=== PATIENT | male | born 1945 | race Caucasian/White ===

== ENCOUNTER 2016-05-04 14:47 | Outpatient (RCR) | payer MEDICARE, BC ==
[~2016-05-04 14:47] MED LIST: AMIODARONE PO; ASPIRIN ADULT L81 M3 PO; ATIVAN1 M1 PO; ATIVAN1 MG PO; ATORVASTATIN CA10 MG PO; COREG 3.123.125 MG/T PO; IPRATROPIUM BROM3 M1 IH; KEFLEX250 M1 PO; LIORESAL 1010 MG/TAB PO; METOPROLOL SUCC25 M1 PO; NORCO 325 MG-51 TAB PO; PRILOSEC 20MG20 MG PO; SENNA-TIME S 501 TAB PO; SERTRALINE HYDR50 MG PO; ZANTAC PO
== END 2016-08-02 | disposition home or self-care (01) ==
LOC: CARDREHAB 14:47
DX: Z48.812 Encounter for surgical aftercare following surgery on the circulatory system (principal); Z95.1 Presence of aortocoronary bypass graft

== ENCOUNTER 2016-08-31 10:53 | Outpatient (RCR) | payer MEDICARE, BC ==
[2016-02-01 09:30] VITALS: BP 131/74
== END 2016-11-29 | disposition home or self-care (01) ==
LOC: CARDREHAB
DX: Z48.812 Encounter for surgical aftercare following surgery on the circulatory system (principal); Z98.61 Coronary angioplasty status

== ENCOUNTER → 2016-09-03 | Outpatient (CLI) | payer MEDICARE, BC ==
[~2016-09-03] MED LIST changes: +ASPIRIN E.C. 8181 MG PO; +ATIVAN0.5 MG PO; +CLOPIDOGREL PO; +ISOSORBIDE30 MG PO; +LIPITOR 10M10 MG/TAB PO; +RT ALBUTEROL CC18 GM IH; +SYMBICORT1 AE2 IH; +ZANTAC150 M1 PO
== END ==
LOC: LAB 08:47
DX: I70.0 Atherosclerosis of aorta (principal); I70.213 Atherosclerosis of native arteries of extremities with intermittent claudication, bilateral legs

== ENCOUNTER → 2016-09-16 | Outpatient (CLI) | payer MEDICARE, BC | LOC: RAD 09:54 | DX: Z12.5 Encounter for screening for malignant neoplasm of prostate (principal) ==

== ENCOUNTER → 2016-09-24 | Outpatient (CLI) | payer MEDICARE, BC | LOC: RAD 08:50 | DX: Z13.820 Encounter for screening for osteoporosis (principal); M85.852 Other specified disorders of bone density and structure, left thigh ==

== ENCOUNTER → 2016-09-25 | Outpatient (CLI) | payer MEDICARE, BC | LOC: LAB 10:56 | DX: I70.213 Atherosclerosis of native arteries of extremities with intermittent claudication, bilateral legs (principal) ==

== ENCOUNTER → 2016-10-07 | Outpatient (CLI) | payer MEDICARE, BC | LOC: RAD 12:20 | DX: R35.1 Nocturia (principal); Z85.528 Personal history of other malignant neoplasm of kidney ==

== ENCOUNTER → 2016-10-08 | Outpatient (CLI) | payer MEDICARE, BC | LOC: RAD 07:45 | DX: R35.1 Nocturia (principal); Z85.528 Personal history of other malignant neoplasm of kidney ==

== ENCOUNTER 2016-11-16 08:00 | Outpatient (RCR) | payer MEDICARE, BC ==
[2016-02-01 09:30] VITALS: BP 131/74
[~2016-11-16 08:00] MED LIST changes: -ASPIRIN E.C. 8181 MG PO; -ATIVAN0.5 MG PO; -CLOPIDOGREL PO; -ISOSORBIDE30 MG PO; -LIPITOR 10M10 MG/TAB PO; -RT ALBUTEROL CC18 GM IH; -SYMBICORT1 AE2 IH; -ZANTAC150 M1 PO
[2016-12-27] MEDS ORDERED: IPRATROPIUM BROM3 M1 IH (01:45)
[2016-12-27] MEDS ORDERED: RT ALBUTEROL CC18 GM IH (01:45)
[2016-12-27] MEDS ORDERED: LIPITOR 10M10 MG/TAB PO (01:46)
[2016-12-27] MEDS ORDERED: ASPIRIN E.C. 8181 MG PO (01:46)
[2016-12-27] MEDS ORDERED: CLOPIDOGREL PO (01:47)
[2016-12-27] MEDS ORDERED: ISOSORBIDE30 MG PO (01:47)
[2016-12-27] MEDS ORDERED: ATIVAN0.5 MG PO (01:47)
[2016-12-27] MEDS ORDERED: ZANTAC150 M1 PO (01:48)
[2016-12-31] MEDS ORDERED: SYMBICORT1 AE2 IH (15:57)
== END 2017-02-14 | disposition home or self-care (01) ==
LOC: CARDREHAB
DX: Z48.812 Encounter for surgical aftercare following surgery on the circulatory system (principal); Z95.5 Presence of coronary angioplasty implant and graft

== ENCOUNTER → 2016-12-04 | Outpatient (CLI) | payer MEDICARE, BC ==
[2016-02-01 09:30] VITALS: BP 131/74
[~2016-12-04] MED LIST changes: +ASPIRIN E.C. 8181 MG PO; +ATIVAN0.5 MG PO; +CLOPIDOGREL PO; +ISOSORBIDE30 MG PO; +LIPITOR 10M10 MG/TAB PO; +RT ALBUTEROL CC18 GM IH; +SYMBICORT1 AE2 IH; +ZANTAC150 M1 PO
== END ==
LOC: CARDREHAB 08:47
DX: R06.02 Shortness of breath (principal); I10 Essential (primary) hypertension; R07.9 Chest pain, unspecified; Z87.891 Personal history of nicotine dependence; I25.10 Atherosclerotic heart disease of native coronary artery without angina pectoris; Z79.51 Long term (current) use of inhaled steroids
CPT/HCPCS: A9500

== ENCOUNTER 2016-12-26 23:19 | Emergency (ER) | payer MEDICARE, BC ==
[~2016-12-26] VITALS: Ht 175.3 cm; Wt 88.2 kg
[~2016-12-26 23:19] MED LIST changes: -ASPIRIN E.C. 8181 MG PO; -ATIVAN0.5 MG PO; -CLOPIDOGREL PO; -ISOSORBIDE30 MG PO; -LIPITOR 10M10 MG/TAB PO; -RT ALBUTEROL CC18 GM IH; -SYMBICORT1 AE2 IH; -ZANTAC150 M1 PO
[2016-12-27 00:17] VITALS: BP 145/83
[2016-12-27] MEDS ORDERED: IPRATROPIUM BROM3 M1 IH (01:45)
[2016-12-27] MEDS ORDERED: RT ALBUTEROL CC18 GM IH (01:45)
[2016-12-27] MEDS ORDERED: LIPITOR 10M10 MG/TAB PO (01:46)
[2016-12-27] MEDS ORDERED: ASPIRIN E.C. 8181 MG PO (01:46)
[2016-12-27] MEDS ORDERED: CLOPIDOGREL PO (01:47)
[2016-12-27] MEDS ORDERED: ISOSORBIDE30 MG PO (01:47)
[2016-12-27] MEDS ORDERED: ATIVAN0.5 MG PO (01:47)
[2016-12-27] MEDS ORDERED: ZANTAC150 M1 PO (01:48)
== END 2016-12-27 00:17 | disposition home or self-care (01) ==
LOC: ED 23:19
DX: S00.12XA Contusion of left eyelid and periocular area, initial encounter (principal); X58.XXXA Exposure to other specified factors, initial encounter; I25.10 Atherosclerotic heart disease of native coronary artery without angina pectoris; Z95.1 Presence of aortocoronary bypass graft; Z79.02 Long term (current) use of antithrombotics/antiplatelets; Z90.5 Acquired absence of kidney

== ENCOUNTER 2016-12-31 15:47 | Emergency (ER) | payer MEDICARE, BC ==
[~2016-12-31] VITALS: Ht 22.9 cm; Wt 90.0 kg
[~2016-12-31 15:47] MED LIST changes: +ASPIRIN E.C. 8181 MG PO; +ATIVAN0.5 MG PO; +CLOPIDOGREL PO; +ISOSORBIDE30 MG PO; +LIPITOR 10M10 MG/TAB PO; +RT ALBUTEROL CC18 GM IH; +ZANTAC150 M1 PO
[2016-12-31] MEDS ORDERED: SYMBICORT1 AE2 IH (15:57)
[2016-12-31 19:05] VITALS: BP 135/88
== END 2016-12-31 17:55 | disposition home or self-care (01) ==
LOC: ED 15:47
DX: J44.9 Chronic obstructive pulmonary disease, unspecified (principal); R07.9 Chest pain, unspecified; I25.10 Atherosclerotic heart disease of native coronary artery without angina pectoris; Z95.1 Presence of aortocoronary bypass graft; I25.2 Old myocardial infarction; I50.9 Heart failure, unspecified; Z79.02 Long term (current) use of antithrombotics/antiplatelets

== ENCOUNTER → 2017-04-29 | Outpatient (CLI) | payer MEDICARE, BC ==
[~2017-04-29] MED LIST changes: +SYMBICORT1 AE2 IH
== END ==
LOC: LAB 15:09
DX: R53.81 Other malaise (principal)

== ENCOUNTER → 2017-10-20 | Outpatient (CLI) | payer MEDICARE, BC | LOC: LAB 09:21 | DX: I73.9 Peripheral vascular disease, unspecified (principal); I70.0 Atherosclerosis of aorta; I25.10 Atherosclerotic heart disease of native coronary artery without angina pectoris; Z88.1 Allergy status to other antibiotic agents; Z88.0 Allergy status to penicillin ==

== ENCOUNTER → 2017-10-26 | Outpatient (CLI) | payer MEDICARE, BC | LOC: RAD 08:24 | DX: J98.11 Atelectasis (principal); M16.0 Bilateral primary osteoarthritis of hip; Z85.528 Personal history of other malignant neoplasm of kidney; Z87.891 Personal history of nicotine dependence; Z88.1 Allergy status to other antibiotic agents; Z88.0 Allergy status to penicillin ==

== ENCOUNTER 2017-11-17 12:12 | Emergency (ER) | payer MEDICARE, BC ==
[~2017-11-17] VITALS: Ht 175.3 cm; Wt 90.9 kg
[2017-11-17 12:58] LABS: EOS # 0.1 (0.04-0.40); EOS % 1.2 % (0.0-4.0); HEMATOCRIT 41.9 % (42.0-52.0); HEMOGLOBIN 14.1 g/dL (13.5-18.0); LYMPH# 1.5 (1.50-4.00); MEAN CELL VOLUME 96 fl (78-100); MEAN CORPUSCULAR HEMOGLOBIN 32 pg (27-31); MEAN CORPUSCULAR HGB CONC 34 g/dL (33-37); MEAN PLATELET VOLUME 9.7 fl (7.4-10.4); MONO # 0.5 (0.20-0.80); NEU # 5.2 (1.40-6.50); PLATELET COUNT 172 K/mm3 (130-400); RED BLOOD COUNT 4.38 M/mm3 (4.20-5.60); RED CELL DISTRIBUTION WIDTH 13.1 % (11.5-14.5); WHITE BLOOD COUNT 7.3 K/mm3 (4.8-10.8)
[2017-11-17 13:11] LABS: ALBUMIN 4.3 g/dL (3.5-5.0); BUN/CREATININE RATIO 14.4 (6.0-26.0); CALCIUM 9.2 mg/dL (8.4-10.2); POTASSIUM 4.2 mmol/L (3.6-5.0); TOTAL BILIRUBIN 0.6 mg/dL (0.2-1.3); TOTAL PROTEIN 8.1 g/dL (6.3-8.2)
[2017-11-17 13:57] LABS: URINE APPEARANCE CLEAR; URINE BILIRUBIN NEGATIVE (NEGATIVE); URINE BLOOD NEGATIVE (NEGATIVE); URINE COLOR YELLOW; URINE GLUCOSE NEGATIVE (NEGATIVE); URINE KETONE NEGATIVE (NEGATIVE); URINE LEUKOCYTE ESTERASE NEGATIVE (NEGATIVE); URINE NITRATE NEGATIVE (NEGATIVE); URINE PROTEIN(semi-quant) 1+ mg/dL (NEGATIVE); URINE UROBILINOGEN NORMAL (NORMAL); URINE WBC 0-1 /hpf (0-3)
[2017-11-17] MEDS ORDERED: VALIUM 5MG T5 MG/TAB PO (14:25)
[2017-11-17 14:32] VITALS: BP 122/69
== END 2017-11-17 14:30 | disposition home or self-care (01) ==
LOC: ED 12:12
PROVIDERS: Physician Assistant
DX: H83.03 Labyrinthitis, bilateral (principal); J44.9 Chronic obstructive pulmonary disease, unspecified; Z85.528 Personal history of other malignant neoplasm of kidney; Z87.891 Personal history of nicotine dependence; F41.9 Anxiety disorder, unspecified; Z79.82 Long term (current) use of aspirin

== ENCOUNTER 2017-12-14 09:00 | Outpatient (RCR) | payer MEDICARE, BC ==
[~2017-12-14 09:00] MED LIST changes: -ATIVAN0.5 MG PO; +VALIUM 5MG T5 MG/TAB PO
[2017-12-16] MEDS ORDERED: ANORO ELLIPTA1 POW IH (14:31)
[2017-12-16] MEDS ORDERED: LOPRESSOR 225 MG/TAB PO (17:18)
== END 2018-01-23 | disposition home or self-care (01) ==
LOC: PT
DX: M16.11 Unilateral primary osteoarthritis, right hip (principal); M25.552 Pain in left hip; M48.00 Spinal stenosis, site unspecified
CPT/HCPCS: G8978-GP; G8979-GP

== ENCOUNTER 2017-12-16 14:19 | Emergency (ER) | payer MEDICARE, BC ==
[~2017-12-16] VITALS: Ht 175.3 cm; Wt 95.4 kg
[2017-12-16] MEDS ORDERED: ANORO ELLIPTA1 POW IH (14:31)
[2017-12-16 15:29] LABS: EOS # 0.1 (0.04-0.40); EOS % 0.9 % (0.0-4.0); HEMATOCRIT 40.4 % (42.0-52.0); HEMOGLOBIN 13.7 g/dL (13.5-18.0); LYMPH# 1.3 (1.50-4.00); MEAN CELL VOLUME 96 fl (78-100); MEAN CORPUSCULAR HEMOGLOBIN 33 pg (27-31); MEAN CORPUSCULAR HGB CONC 34 g/dL (33-37); MEAN PLATELET VOLUME 9.9 fl (7.4-10.4); MONO # 0.6 (0.20-0.80); NEU # 4.4 (1.40-6.50); PLATELET COUNT 169 K/mm3 (130-400); RED BLOOD COUNT 4.22 M/mm3 (4.20-5.60); RED CELL DISTRIBUTION WIDTH 13.2 % (11.5-14.5); WHITE BLOOD COUNT 6.4 K/mm3 (4.8-10.8)
[2017-12-16 15:48] LABS: ALBUMIN 4.2 g/dL (3.5-5.0); BUN/CREATININE RATIO 16.3 (6.0-26.0); CALCIUM 8.8 mg/dL (8.4-10.2); POTASSIUM 4.1 mmol/L (3.6-5.0); TOTAL BILIRUBIN 0.5 mg/dL (0.2-1.3); TOTAL PROTEIN 7.9 g/dL (6.3-8.2)
[2017-12-16 15:50] LABS: PARTIAL THROMBOPLASTIN TIME 24.5 SECONDS (21.0-32.0); PROTHROMBIN TIME 9.9 SECONDS (9.0-12.0)
[2017-12-16 15:58] LABS: CKMB ISOENZYME 7.4 ng/mL (0.6-3.5); TROPONIN-I < 0.03 ng/mL (0.00-0.06)
[2017-12-16 15:59] LABS: D-DIMER 0.71 mg/L FEU (0.15-0.50)
[2017-12-16] MEDS ORDERED: LOPRESSOR 225 MG/TAB PO (17:18)
[2017-12-16 18:02] VITALS: BP 119/86
== END 2017-12-16 18:09 | disposition home or self-care (01) ==
LOC: ED 14:19
PROVIDERS: Physician Assistant
DX: I47.1 Supraventricular tachycardia (principal); I25.10 Atherosclerotic heart disease of native coronary artery without angina pectoris; F41.9 Anxiety disorder, unspecified; Z95.1 Presence of aortocoronary bypass graft; J44.9 Chronic obstructive pulmonary disease, unspecified; I73.9 Peripheral vascular disease, unspecified; Z87.891 Personal history of nicotine dependence; Z79.82 Long term (current) use of aspirin
CPT/HCPCS: J1885; J7030

== ENCOUNTER → 2017-12-24 | Outpatient (CLI) | payer MEDICARE, BC ==
[~2017-12-24] VITALS: Ht 175.3 cm; Wt 95.4 kg
[~2017-12-24] MED LIST changes: +ANORO ELLIPTA1 POW IH; +LOPRESSOR 225 MG/TAB PO
[2017-12-24 09:36] VITALS: BP 122/70
== END ==
LOC: AMSURD 09:26
DX: I49.5 Sick sinus syndrome (principal); J44.9 Chronic obstructive pulmonary disease, unspecified

== ENCOUNTER → 2017-12-30 | Outpatient (CLI) | payer MEDICARE, BC ==
[2017-12-24 09:36] VITALS: BP 122/70
== END ==
LOC: RAD 15:44
DX: I35.1 Nonrheumatic aortic (valve) insufficiency (principal)

== ENCOUNTER 2018-01-31 13:47 | Emergency (ER) | payer MEDICARE, BC ==
[~2018-01-31] VITALS: Ht 175.3 cm; Wt 90.9 kg
[2018-01-31 14:23] LABS: EOS # 0.1 (0.04-0.40); EOS % 1.8 % (0.0-4.0); HEMATOCRIT 42.7 % (42.0-52.0); HEMOGLOBIN 14.5 g/dL (13.5-18.0); LYMPH# 1.3 (1.50-4.00); MEAN CELL VOLUME 95 fl (78-100); MEAN CORPUSCULAR HEMOGLOBIN 32 pg (27-31); MEAN CORPUSCULAR HGB CONC 34 g/dL (33-37); MONO # 0.6 (0.20-0.80); NEU # 4.2 (1.40-6.50); PLATELET COUNT 172 K/mm3 (130-400); RED BLOOD COUNT 4.48 M/mm3 (4.20-5.60); WHITE BLOOD COUNT 6.2 K/mm3 (4.8-10.8)
[2018-01-31 14:39] LABS: ALBUMIN 4.3 g/dL (3.5-5.0); BUN/CREATININE RATIO 18.1 (6.0-26.0); CALCIUM 9.2 mg/dL (8.4-10.2); POTASSIUM 4.2 mmol/L (3.6-5.0); TOTAL BILIRUBIN 0.6 mg/dL (0.2-1.3); TOTAL PROTEIN 7.9 g/dL (6.3-8.2)
[2018-01-31 14:55] LABS: CKMB ISOENZYME 4.5 ng/mL (0.6-3.5); TROPONIN-I < 0.03 ng/mL (0.00-0.06)
[2018-01-31 16:35] LABS: CKMB ISOENZYME 3.7 ng/mL (0.6-3.5); TROPONIN-I < 0.03 ng/mL (0.00-0.06)
[2018-01-31 16:59] VITALS: BP 132/73
== END 2018-01-31 16:54 | disposition home or self-care (01) ==
LOC: ED 13:47
PROVIDERS: Nurse Practitioner Primary Care
DX: I49.5 Sick sinus syndrome (principal); R00.1 Bradycardia, unspecified; I48.91 Unspecified atrial fibrillation; I25.10 Atherosclerotic heart disease of native coronary artery without angina pectoris; I10 Essential (primary) hypertension; J44.9 Chronic obstructive pulmonary disease, unspecified; E78.5 Hyperlipidemia, unspecified; Z79.82 Long term (current) use of aspirin; Z79.899 Other long term (current) drug therapy; Z95.1 Presence of aortocoronary bypass graft
CPT/HCPCS: J2405; J7030

== ENCOUNTER → 2018-02-03 | Outpatient (CLI) | payer MEDICARE, BC ==
[2018-01-31 16:59] VITALS: BP 132/73
[2018-02-04 14:16] LABS: HEMOGLOBIN 13.6 g/dL (13.5-18.0); RED BLOOD COUNT 4.16 M/mm3 (4.20-5.60); RED CELL DISTRIBUTION WIDTH 13.1 % (11.5-14.5)
[2018-02-04 14:25] LABS: BUN/CREATININE RATIO 14.2 (6.0-26.0); CALCIUM 8.9 mg/dL (8.4-10.2); POTASSIUM 4.4 mmol/L (3.6-5.0)
== END ==
LOC: LAB 13:48
PROVIDERS: Family Medicine
DX: I49.5 Sick sinus syndrome (principal); I70.213 Atherosclerosis of native arteries of extremities with intermittent claudication, bilateral legs; I25.810 Atherosclerosis of coronary artery bypass graft(s) without angina pectoris

== ENCOUNTER 2018-02-15 21:28 | Emergency (ER) | payer MEDICARE, BC ==
[2018-02-15] MEDS ORDERED: ELIQUIS5 MG PO (21:53)
[2018-02-15 22:02] LABS: EOS # 0.1 (0.04-0.40); EOS % 1.2 % (0.0-4.0); HEMATOCRIT 39.5 % (42.0-52.0); HEMOGLOBIN 13.6 g/dL (13.5-18.0); LYMPH# 1.3 (1.50-4.00); MEAN CELL VOLUME 96 fl (78-100); MEAN CORPUSCULAR HEMOGLOBIN 33 pg (27-31); MEAN CORPUSCULAR HGB CONC 34 g/dL (33-37); MEAN PLATELET VOLUME 9.7 fl (7.4-10.4); MONO # 0.7 (0.20-0.80); NEU # 5.6 (1.40-6.50); PLATELET COUNT 175 K/mm3 (130-400); RED BLOOD COUNT 4.13 M/mm3 (4.20-5.60); RED CELL DISTRIBUTION WIDTH 12.8 % (11.5-14.5); WHITE BLOOD COUNT 7.7 K/mm3 (4.8-10.8)
[2018-02-15 22:14] LABS: URINE WBC 0 /hpf (0-3)
[2018-02-15 22:16] LABS: ALBUMIN 4.4 g/dL (3.5-5.0); BUN/CREATININE RATIO 17.3 (6.0-26.0); CALCIUM 9.5 mg/dL (8.4-10.2); POTASSIUM 4.4 mmol/L (3.6-5.0); TOTAL BILIRUBIN 0.4 mg/dL (0.2-1.3); TOTAL PROTEIN 7.9 g/dL (6.3-8.2)
[2018-02-15 22:21] LABS: PH-URINE 5.5 (5.0 - 8.0); URINE APPEARANCE CLEAR; URINE BILIRUBIN NEGATIVE (NEGATIVE); URINE BLOOD NEGATIVE (NEGATIVE); URINE COLOR YELLOW; URINE GLUCOSE NEGATIVE (NEGATIVE); URINE KETONE NEGATIVE (NEGATIVE); URINE LEUKOCYTE ESTERASE NEGATIVE (NEGATIVE); URINE NITRATE NEGATIVE (NEGATIVE); URINE PROTEIN(semi-quant) TRACE mg/dL (NEGATIVE); URINE UROBILINOGEN NORMAL (NORMAL)
[2018-02-15 22:50] VITALS: BP 138/90
== END 2018-02-15 22:50 | disposition home or self-care (01) ==
LOC: ED 21:28
PROVIDERS: Physician Assistant
DX: I48.0 Paroxysmal atrial fibrillation (principal); Z95.0 Presence of cardiac pacemaker; Z79.01 Long term (current) use of anticoagulants; J44.9 Chronic obstructive pulmonary disease, unspecified; I25.10 Atherosclerotic heart disease of native coronary artery without angina pectoris; Z90.5 Acquired absence of kidney; F41.9 Anxiety disorder, unspecified

== ENCOUNTER 2018-02-27 18:04 | Emergency (ER) | payer MEDICARE, BC ==
[~2018-02-27] VITALS: Wt 91.0 kg
[~2018-02-27 18:04] MED LIST changes: +ELIQUIS5 MG PO
[2018-02-27] MEDS ORDERED: AMIODARONE HCL400 MG PO (19:20)
[2018-02-27] MEDS ORDERED: LOPRESSOR 225 MG/TAB PO (19:21)
[2018-02-27] MEDS ORDERED: ANORO ELLIPTA1 POW IH (19:22)
[2018-02-27 19:27] LABS: HEMATOCRIT 40.1 % (42.0-52.0); HEMOGLOBIN 13.6 g/dL (13.5-18.0); MEAN CELL VOLUME 96 fl (78-100); MEAN CORPUSCULAR HEMOGLOBIN 33 pg (27-31); MEAN CORPUSCULAR HGB CONC 34 g/dL (33-37); MEAN PLATELET VOLUME 10.1 fl (7.4-10.4); PLATELET COUNT 172 K/mm3 (130-400); RED BLOOD COUNT 4.16 M/mm3 (4.20-5.60); RED CELL DISTRIBUTION WIDTH 12.9 % (11.5-14.5); WHITE BLOOD COUNT 9.7 K/mm3 (4.8-10.8)
[2018-02-27 19:28] LABS: ALBUMIN 4.2 g/dL (3.5-5.0); BUN/CREATININE RATIO 14.5 (6.0-26.0); CALCIUM 9.1 mg/dL (8.4-10.2); POTASSIUM 4.4 mmol/L (3.6-5.0); TOTAL BILIRUBIN 0.6 mg/dL (0.2-1.3); TOTAL PROTEIN 7.2 g/dL (6.3-8.2)
[2018-02-27 19:42] LABS: BAND 1 % (0-10); LYMPHOCYTE 11 % (20-51); MONOCYTE 7 % (3-10); NEUTROPHILS 79 % (42-75); TROPONIN-I < 0.03 ng/mL (0.00-0.06)
[2018-02-27 19:50] LABS: D-DIMER 1.52 mg/L FEU (0.15-0.50)
[2018-02-27 20:20] VITALS: BP 147/75
== END 2018-02-27 20:20 | disposition home or self-care (01) ==
LOC: ED 18:04
PROVIDERS: Family Medicine
DX: R53.81 Other malaise (principal); R23.2 Flushing; F41.9 Anxiety disorder, unspecified; I48.91 Unspecified atrial fibrillation; Z79.82 Long term (current) use of aspirin; I25.10 Atherosclerotic heart disease of native coronary artery without angina pectoris; J44.9 Chronic obstructive pulmonary disease, unspecified; E78.5 Hyperlipidemia, unspecified; Z85.528 Personal history of other malignant neoplasm of kidney; Z95.1 Presence of aortocoronary bypass graft; Z95.0 Presence of cardiac pacemaker; Z90.5 Acquired absence of kidney; Z79.899 Other long term (current) drug therapy; Z87.891 Personal history of nicotine dependence; Z79.01 Long term (current) use of anticoagulants

== ENCOUNTER 2018-03-14 10:08 | Emergency (ER) | payer MEDICARE, BC ==
[~2018-03-14] VITALS: Ht 175.3 cm; Wt 90.0 kg
[~2018-03-14 10:08] MED LIST changes: +AMIODARONE HCL400 MG PO
[2018-03-14 10:54] LABS: EOS # 0.1 (0.04-0.40); EOS % 1.1 % (0.0-4.0); HEMATOCRIT 41.3 % (42.0-52.0); HEMOGLOBIN 13.7 g/dL (13.5-18.0); LYMPH# 1.2 (1.50-4.00); MEAN CELL VOLUME 96 fl (78-100); MEAN CORPUSCULAR HEMOGLOBIN 32 pg (27-31); MEAN CORPUSCULAR HGB CONC 33 g/dL (33-37); MEAN PLATELET VOLUME 9.3 fl (7.4-10.4); MONO # 0.7 (0.20-0.80); NEU # 5.8 (1.40-6.50); PLATELET COUNT 200 K/mm3 (130-400); RED BLOOD COUNT 4.29 M/mm3 (4.20-5.60); RED CELL DISTRIBUTION WIDTH 12.9 % (11.5-14.5); WHITE BLOOD COUNT 7.9 K/mm3 (4.8-10.8)
[2018-03-14 11:08] LABS: ALBUMIN 4.4 g/dL (3.5-5.0); CALCIUM 9.5 mg/dL (8.4-10.2); POTASSIUM 5.1 mmol/L (3.6-5.0); TOTAL BILIRUBIN 0.9 mg/dL (0.2-1.3); TOTAL PROTEIN 7.5 g/dL (6.3-8.2)
[2018-03-14 11:16] LABS: URINE APPEARANCE CLEAR; URINE BILIRUBIN NEGATIVE (NEGATIVE); URINE BLOOD NEGATIVE (NEGATIVE); URINE COLOR YELLOW; URINE GLUCOSE NEGATIVE (NEGATIVE); URINE KETONE NEGATIVE (NEGATIVE); URINE LEUKOCYTE ESTERASE NEGATIVE (NEGATIVE); URINE MUCUS PRESENT (NOT PRESENT); URINE NITRATE NEGATIVE (NEGATIVE); URINE PROTEIN(semi-quant) 1+ mg/dL (NEGATIVE); URINE UROBILINOGEN NORMAL (NORMAL); URINE WBC 0-1 /hpf (0-3)
[2018-03-14] MEDS ORDERED: ZOFRAN ODT4 MG PO (12:42)
[2018-03-14 13:09] VITALS: BP 117/76
== END 2018-03-14 12:58 | disposition home or self-care (01) ==
LOC: ED 10:08
PROVIDERS: Physician Assistant
DX: R10.32 Left lower quadrant pain (principal); R10.31 Right lower quadrant pain; K59.00 Constipation, unspecified; R11.0 Nausea; Z79.899 Other long term (current) drug therapy; Z79.82 Long term (current) use of aspirin; Z79.01 Long term (current) use of anticoagulants; I25.10 Atherosclerotic heart disease of native coronary artery without angina pectoris; I10 Essential (primary) hypertension; Z95.5 Presence of coronary angioplasty implant and graft; Z87.891 Personal history of nicotine dependence; K21.9 Gastro-esophageal reflux disease without esophagitis; Z85.528 Personal history of other malignant neoplasm of kidney
CPT/HCPCS: J7030; Q9967

== ENCOUNTER → 2018-04-18 | Outpatient (CLI) | payer MEDICARE, BC ==
[~2018-04-18] MED LIST changes: +ZOFRAN ODT4 MG PO
[2018-04-18 09:02] LABS: ALBUMIN 4.3 g/dL (3.5-5.0); CALCIUM 9.5 mg/dL (8.4-10.2); POTASSIUM 4.5 mmol/L (3.6-5.0); TOTAL BILIRUBIN 0.6 mg/dL (0.2-1.3); TOTAL PROTEIN 7.5 g/dL (6.3-8.2)
== END ==
LOC: LAB 08:04
PROVIDERS: Family Medicine
DX: I70.0 Atherosclerosis of aorta (principal); I25.10 Atherosclerotic heart disease of native coronary artery without angina pectoris; I73.9 Peripheral vascular disease, unspecified

== ENCOUNTER → 2018-04-21 | Outpatient (CLI) | payer MEDICARE, BC | LOC: RAD 10:08 | DX: K59.00 Constipation, unspecified (principal) ==

== ENCOUNTER → 2018-10-24 | Outpatient (CLI) | payer MEDICARE, BC ==
[2018-10-24 08:31] LABS: ALBUMIN 4.5 g/dL (3.5-5.0); CALCIUM 10.2 mg/dL (8.4-10.2); POTASSIUM 4.5 mmol/L (3.6-5.0); TOTAL BILIRUBIN 0.6 mg/dL (0.2-1.3); TOTAL PROTEIN 7.9 g/dL (6.3-8.2)
== END ==
LOC: LAB 07:34
PROVIDERS: Urology
DX: R35.1 Nocturia (principal); I25.10 Atherosclerotic heart disease of native coronary artery without angina pectoris; I73.9 Peripheral vascular disease, unspecified

== ENCOUNTER → 2018-11-03 | Outpatient (CLI) | payer MEDICARE, BC | LOC: RAD 14:17 | DX: Z00.00 Encounter for general adult medical examination without abnormal findings (principal); M16.11 Unilateral primary osteoarthritis, right hip; M87.9 Osteonecrosis, unspecified; M48.07 Spinal stenosis, lumbosacral region; M85.80 Other specified disorders of bone density and structure, unspecified site; F41.8 Other specified anxiety disorders; I70.0 Atherosclerosis of aorta; K21.9 Gastro-esophageal reflux disease without esophagitis; I73.9 Peripheral vascular disease, unspecified; I25.10 Atherosclerotic heart disease of native coronary artery without angina pectoris; J44.9 Chronic obstructive pulmonary disease, unspecified; Z95.828 Presence of other vascular implants and grafts ==

== ENCOUNTER → 2018-11-08 | Outpatient (CLI) | payer MEDICARE, BC | LOC: RAD 11-07 07:49 | DX: M89.9 Disorder of bone, unspecified (principal); I70.90 Unspecified atherosclerosis; Z95.0 Presence of cardiac pacemaker; Z90.5 Acquired absence of kidney; Z98.890 Other specified postprocedural states; Z85.528 Personal history of other malignant neoplasm of kidney ==

== ENCOUNTER → 2018-11-15 | Outpatient (CLI) | payer MEDICARE, BC | LOC: RAD 08:21 → MAMMO 08:30 | DX: Z00.00 Encounter for general adult medical examination without abnormal findings (principal); Z13.820 Encounter for screening for osteoporosis; M16.11 Unilateral primary osteoarthritis, right hip; M48.07 Spinal stenosis, lumbosacral region; M85.80 Other specified disorders of bone density and structure, unspecified site; J44.9 Chronic obstructive pulmonary disease, unspecified; F41.8 Other specified anxiety disorders; I25.10 Atherosclerotic heart disease of native coronary artery without angina pectoris; K21.9 Gastro-esophageal reflux disease without esophagitis; I73.9 Peripheral vascular disease, unspecified; I35.8 Other nonrheumatic aortic valve disorders ==

== ENCOUNTER 2018-12-22 15:23 | Emergency (ER) | payer MEDICARE, BC ==
[~2018-12-22] VITALS: Wt 93.2 kg
[2018-12-22] MEDS ORDERED: COLACE100 M1 PO (15:33)
[2018-12-22] MEDS ORDERED: TOPROL XL100 MG PO (15:34)
[2018-12-22] MEDS ORDERED: ASPIR LOW81 MG PO (15:35)
[2018-12-22 16:09] LABS: EOS # 0.1 (0.04-0.40); HEMATOCRIT 40.8 % (42.0-52.0); HEMOGLOBIN 13.7 g/dL (13.5-18.0); LYMPH# 1.1 (1.50-4.00); MEAN CELL VOLUME 97 fl (78-100); MEAN CORPUSCULAR HEMOGLOBIN 32 pg (27-31); MEAN CORPUSCULAR HGB CONC 34 g/dL (33-37); MEAN PLATELET VOLUME 9.7 fl (7.4-10.4); MONO # 0.5 (0.20-0.80); NEU # 4.2 (1.40-6.50); PLATELET COUNT 156 K/mm3 (130-400); RED BLOOD COUNT 4.23 M/mm3 (4.20-5.60); RED CELL DISTRIBUTION WIDTH 13.1 % (11.5-14.5)
[2018-12-22 16:27] LABS: CALCIUM 9.5 mg/dL (8.3-10.5); POTASSIUM 4.2 mmol/L (3.5-5.1); TOTAL BILIRUBIN 0.6 mg/dL (0.2-1.2); TOTAL PROTEIN 7.2 g/dL (6.2-8.1)
[2018-12-22 16:57] LABS: D-DIMER 0.83 mg/L FEU (0.15-0.50)
[2018-12-22 18:46] VITALS: BP 123/81
== END 2018-12-22 18:40 | disposition home or self-care (01) ==
LOC: ED 15:23
PROVIDERS: Nurse Practitioner Family
DX: R42 Dizziness and giddiness (principal); T44.7X5A Adverse effect of beta-adrenoreceptor antagonists, initial encounter; I25.10 Atherosclerotic heart disease of native coronary artery without angina pectoris; I48.91 Unspecified atrial fibrillation; I25.2 Old myocardial infarction; J44.9 Chronic obstructive pulmonary disease, unspecified; Z95.0 Presence of cardiac pacemaker; Z90.5 Acquired absence of kidney; Z90.49 Acquired absence of other specified parts of digestive tract; Z79.82 Long term (current) use of aspirin; Z87.891 Personal history of nicotine dependence; Z85.528 Personal history of other malignant neoplasm of kidney
CPT/HCPCS: J7030; Q9967

== ENCOUNTER → 2019-01-13 | Outpatient (CLI) | payer MEDICARE, BC ==
[2018-12-22 18:46] VITALS: BP 123/81
[~2019-01-13] MED LIST changes: +ASPIR LOW81 MG PO; +COLACE100 M1 PO; +TOPROL XL100 MG PO
[2019-01-13 08:44] LABS: POTASSIUM 4.5 mmol/L (3.5-5.1)
[2019-01-13 08:45] LABS: CALCIUM 9.5 mg/dL (8.3-10.5)
== END ==
LOC: LAB 08:20
PROVIDERS: Family Medicine
DX: N18.4 Chronic kidney disease, stage 4 (severe) (principal); R79.89 Other specified abnormal findings of blood chemistry; R35.1 Nocturia

== ENCOUNTER → 2019-01-16 | Outpatient (CLI) | payer MEDICARE, BC ==
[2018-12-22 18:46] VITALS: BP 123/81
== END ==
LOC: RAD 09:29
DX: N18.4 Chronic kidney disease, stage 4 (severe) (principal); N28.89 Other specified disorders of kidney and ureter; N39.43 Post-void dribbling; Z90.5 Acquired absence of kidney

== ENCOUNTER 2019-02-09 09:15 | Emergency (ER) | payer MEDICARE, BC ==
[2019-02-09] MEDS ORDERED: METOPROLOL SUCC25 M1 PO (10:17)
[2019-02-09 10:34] LABS: URINE APPEARANCE HAZY; URINE COLOR YELLOW
[2019-02-09 10:35] LABS: URINE BILIRUBIN NEGATIVE (NEGATIVE); URINE BLOOD 50 ery/uL (NEGATIVE); URINE GLUCOSE NEGATIVE (NEGATIVE); URINE KETONE NEGATIVE (NEGATIVE); URINE LEUKOCYTE ESTERASE 1+ (NEGATIVE); URINE NITRATE POSITIVE (NEGATIVE); URINE PROTEIN(semi-quant) 1+ mg/dL (NEGATIVE); URINE UROBILINOGEN NORMAL (NORMAL); URINE WBC >50 /hpf (0-3)
[2019-02-09 10:41] LABS: HEMATOCRIT 39.4 % (42.0-52.0); HEMOGLOBIN 13.4 g/dL (13.5-18.0); MEAN CELL VOLUME 96 fl (78-100); MEAN CORPUSCULAR HEMOGLOBIN 33 pg (27-31); MEAN CORPUSCULAR HGB CONC 34 g/dL (33-37); PLATELET COUNT 162 K/mm3 (130-400); RED BLOOD COUNT 4.09 M/mm3 (4.20-5.60); RED CELL DISTRIBUTION WIDTH 13.1 % (11.5-14.5); WHITE BLOOD COUNT 12.5 K/mm3 (4.8-10.8)
[2019-02-09 10:53] LABS: ALBUMIN 4.1 g/dL (3.4-4.8); POTASSIUM 4.7 mmol/L (3.5-5.1)
[2019-02-09 10:54] LABS: CALCIUM 9.5 mg/dL (8.3-10.5)
[2019-02-09 10:55] LABS: TOTAL PROTEIN 7.6 g/dL (6.2-8.1)
[2019-02-09 10:56] LABS: BAND 1 % (0-10); LYMPHOCYTE 11 % (20-51); MONOCYTE 4 % (3-10); NEUTROPHILS 84 % (42-75)
[2019-02-09 10:57] LABS: TOTAL BILIRUBIN 1.3 mg/dL (0.2-1.2)
[2019-02-09] MEDS ORDERED: ACID REDUCER 1150 MG PO (11:17)
[2019-02-09] MEDS ORDERED: DILTIAZEM HCL PO (11:18)
[2019-02-09] MEDS ORDERED: CIPRO250 M1 PO (13:08)
[2019-02-09 13:29] VITALS: BP 122/66
== END 2019-02-09 13:24 | disposition home or self-care (01) ==
LOC: ED 09:15
PROVIDERS: Nurse Practitioner Primary Care
DX: N30.00 Acute cystitis without hematuria (principal); I10 Essential (primary) hypertension; Z90.49 Acquired absence of other specified parts of digestive tract; Z95.1 Presence of aortocoronary bypass graft; Z95.0 Presence of cardiac pacemaker; Z87.442 Personal history of urinary calculi; Z98.52 Vasectomy status; Z79.82 Long term (current) use of aspirin; Z88.0 Allergy status to penicillin; Z88.1 Allergy status to other antibiotic agents
CPT/HCPCS: A4216; J0696

== ENCOUNTER → 2019-04-17 | Outpatient (CLI) | payer MEDICARE, BC ==
[~2019-04-17] MED LIST changes: +ACID REDUCER 1150 MG PO; +CIPRO250 M1 PO; +DILTIAZEM HCL PO
[2019-04-17 09:39] LABS: HEMATOCRIT 41.4 % (42.0-52.0); HEMOGLOBIN 13.9 g/dL (13.5-18.0); MEAN PLATELET VOLUME 9.8 fl (7.4-10.4); RED BLOOD COUNT 4.37 M/mm3 (4.20-5.60); WHITE BLOOD COUNT 4.8 K/mm3 (4.8-10.8)
[2019-04-17 10:09] LABS: ALBUMIN 4.1 g/dL (3.4-4.8); CALCIUM 9.8 mg/dL (8.3-10.5); POTASSIUM 4.6 mmol/L (3.5-5.1)
== END ==
LOC: LAB 09:12
PROVIDERS: Internal Medicine Nephrology
DX: I12.9 Hypertensive chronic kidney disease with stage 1 through stage 4 chronic kidney disease, or unspecified chronic kidney disease (principal); N18.3 Chronic kidney disease, stage 3 (moderate); D63.1 Anemia in chronic kidney disease; M85.80 Other specified disorders of bone density and structure, unspecified site

== ENCOUNTER → 2019-08-25 | Outpatient (CLI) | payer MEDICARE, BC ==
[2019-08-25 08:40] LABS: POTASSIUM 4.4 mmol/L (3.5-5.1)
[2019-08-25 08:42] LABS: CALCIUM 8.5 mg/dL (8.3-10.5)
== END ==
LOC: LAB 08:22
PROVIDERS: Internal Medicine Nephrology
DX: I12.9 Hypertensive chronic kidney disease with stage 1 through stage 4 chronic kidney disease, or unspecified chronic kidney disease (principal); N18.3 Chronic kidney disease, stage 3 (moderate); I73.9 Peripheral vascular disease, unspecified

== ENCOUNTER 2019-09-06 04:17 | Emergency (ER) | payer MEDICARE, BC ==
[~2019-09-06] VITALS: Ht 175.3 cm; Wt 90.0 kg
[2019-09-06] MEDS ORDERED: PEPCID40 M1 PO (04:35)
[2019-09-06] MEDS ORDERED: ALBUTEROL1.25 MG/3 IH (04:36)
[2019-09-06] MEDS ORDERED: OXY (04:37)
[2019-09-06 07:00] LABS: URINE APPEARANCE HAZY; URINE COLOR YELLOW
[2019-09-06 07:01] LABS: PH-URINE 5.5 (5.0 - 8.0); URINE BILIRUBIN NEGATIVE (NEGATIVE); URINE BLOOD TRACE (NEGATIVE); URINE GLUCOSE NEGATIVE (NEGATIVE); URINE KETONE NEGATIVE (NEGATIVE); URINE LEUKOCYTE ESTERASE TRACE (NEGATIVE); URINE NITRATE NEGATIVE (NEGATIVE); URINE PROTEIN(semi-quant) 2+ mg/dL (NEGATIVE); URINE UROBILINOGEN NORMAL (NORMAL)
[2019-09-06 07:02] LABS: URINE MUCUS PRESENT (NOT PRESENT)
[2019-09-06] MEDS ORDERED: CYCLOBENZ5 MG PO (07:58)
[2019-09-06 08:23] VITALS: BP 142/96
== END 2019-09-06 08:20 | disposition home or self-care (01) ==
LOC: ED 04:17
PROVIDERS: Nurse Practitioner Family
DX: M62.830 Muscle spasm of back (principal); M54.5 Low back pain; G89.29 Other chronic pain; I25.10 Atherosclerotic heart disease of native coronary artery without angina pectoris; J44.9 Chronic obstructive pulmonary disease, unspecified; F32.9 Major depressive disorder, single episode, unspecified; N18.9 Chronic kidney disease, unspecified; M16.10 Unilateral primary osteoarthritis, unspecified hip; Z79.82 Long term (current) use of aspirin; Z85.53 Personal history of malignant neoplasm of renal pelvis; Z87.891 Personal history of nicotine dependence; Z90.5 Acquired absence of kidney; Z95.0 Presence of cardiac pacemaker; Z95.5 Presence of coronary angioplasty implant and graft
CPT/HCPCS: J1885; J7030

== ENCOUNTER → 2019-09-25 | Outpatient (CLI) | payer MEDICARE, BC ==
[2019-09-06 08:23] VITALS: BP 142/96
[~2019-09-25] MED LIST changes: +ALBUTEROL1.25 MG/3 IH; +CYCLOBENZ5 MG PO; +OXY; +PEPCID40 M1 PO
[2019-09-25 08:06] LABS: BASO # 0.1 (0.02-0.10); EOS # 0.1 (0.04-0.40); EOS % 2.1 % (0.0-4.0); HEMATOCRIT 41.2 % (42.0-52.0); HEMOGLOBIN 13.6 g/dL (13.5-18.0); LYMPH# 1.3 (1.50-4.00); MEAN CELL VOLUME 97 fl (78-100); MEAN CORPUSCULAR HEMOGLOBIN 32 pg (27-31); MEAN CORPUSCULAR HGB CONC 33 g/dL (33-37); MEAN PLATELET VOLUME 9.3 fl (7.4-10.4); MONO # 0.5 (0.20-0.80); NEU # 2.3 (1.40-6.50); PLATELET COUNT 206 K/mm3 (130-400); RED BLOOD COUNT 4.24 M/mm3 (4.20-5.60); RED CELL DISTRIBUTION WIDTH 12.8 % (11.5-14.5); WHITE BLOOD COUNT 4.3 K/mm3 (4.8-10.8)
[2019-09-25 08:17] LABS: ALBUMIN 4.3 g/dL (3.4-4.8)
[2019-09-25 08:18] LABS: POTASSIUM 4.4 mmol/L (3.5-5.1)
[2019-09-25 08:19] LABS: CALCIUM 9.1 mg/dL (8.3-10.5); PROTHROMBIN TIME 9.8 SECONDS (9.0-12.0)
[2019-09-25 08:20] LABS: TOTAL PROTEIN 7.4 g/dL (6.2-8.1)
[2019-09-25 08:22] LABS: TOTAL BILIRUBIN 0.5 mg/dL (0.2-1.2)
[2019-09-25 08:48] LABS: URINE APPEARANCE CLEAR; URINE BILIRUBIN NEGATIVE (NEGATIVE); URINE BLOOD NEGATIVE (NEGATIVE); URINE COLOR YELLOW; URINE GLUCOSE NEGATIVE (NEGATIVE); URINE KETONE NEGATIVE (NEGATIVE); URINE LEUKOCYTE ESTERASE NEGATIVE (NEGATIVE); URINE NITRATE NEGATIVE (NEGATIVE); URINE PROTEIN(semi-quant) 1+ mg/dL (NEGATIVE); URINE UROBILINOGEN NORMAL (NORMAL); URINE WBC 0-1 /hpf (0-3)
== END ==
LOC: LAB 07:46
PROVIDERS: Family Medicine
DX: Z01.818 Encounter for other preprocedural examination (principal); Z72.0 Tobacco use; Z95.0 Presence of cardiac pacemaker

== ENCOUNTER → 2019-10-05 | Outpatient (CLI) | payer MEDICARE, BC ==
[2019-09-06 08:23] VITALS: BP 142/96
== END ==
LOC: RAD 07:49
DX: K76.89 Other specified diseases of liver (principal)

== ENCOUNTER 2019-11-28 20:06 | Emergency (ER) | payer MEDICARE, BC ==
[2019-11-28 20:56] VITALS: BP 113/73
[2019-11-28] MEDS ORDERED: VITAMIN C500 M6 PO (21:10)
[2019-11-28] MEDS ORDERED: FEOSOL325 MG PO (21:10)
[2019-11-28] MEDS ORDERED: PHARMASSURE FO0.4 MG PO (21:10)
== END 2019-11-28 21:02 | disposition home or self-care (01) ==
LOC: ED 20:06
DX: S01.512A Laceration without foreign body of oral cavity, initial encounter (principal); Z87.891 Personal history of nicotine dependence; W22.8XXA Striking against or struck by other objects, initial encounter

== ENCOUNTER → 2019-12-08 | Outpatient (CLI) | payer MEDICARE, BC ==
[2019-11-28 20:56] VITALS: BP 113/73
[~2019-12-08] MED LIST changes: +FEOSOL325 MG PO; +PHARMASSURE FO0.4 MG PO; +VITAMIN C500 M6 PO
[2019-12-08 08:24] LABS: EOS # 0.1 (0.04-0.40); EOS % 1.4 % (0.0-4.0); HEMATOCRIT 40.8 % (42.0-52.0); HEMOGLOBIN 13.9 g/dL (13.5-18.0); LYMPH# 1.2 (1.50-4.00); MEAN CELL VOLUME 96 fl (78-100); MEAN CORPUSCULAR HEMOGLOBIN 33 pg (27-31); MEAN CORPUSCULAR HGB CONC 34 g/dL (33-37); MEAN PLATELET VOLUME 9.2 fl (7.4-10.4); MONO # 0.5 (0.20-0.80); NEU # 3.7 (1.40-6.50); PLATELET COUNT 184 K/mm3 (130-400); RED BLOOD COUNT 4.24 M/mm3 (4.20-5.60); RED CELL DISTRIBUTION WIDTH 12.6 % (11.5-14.5); WHITE BLOOD COUNT 5.6 K/mm3 (4.8-10.8)
[2019-12-08 08:29] LABS: URINE APPEARANCE CLEAR; URINE BILIRUBIN NEGATIVE (NEGATIVE); URINE BLOOD NEGATIVE (NEGATIVE); URINE COLOR YELLOW; URINE GLUCOSE NEGATIVE (NEGATIVE); URINE KETONE NEGATIVE (NEGATIVE); URINE LEUKOCYTE ESTERASE NEGATIVE (NEGATIVE); URINE MUCUS PRESENT (NOT PRESENT); URINE NITRATE NEGATIVE (NEGATIVE); URINE PROTEIN(semi-quant) 1+ mg/dL (NEGATIVE); URINE UROBILINOGEN NORMAL (NORMAL)
[2019-12-08 08:34] LABS: ALBUMIN 4.5 g/dL (3.4-4.8); POTASSIUM 4.6 mmol/L (3.5-5.1)
[2019-12-08 08:35] LABS: CALCIUM 9.5 mg/dL (8.3-10.5)
[2019-12-08 08:37] LABS: TOTAL PROTEIN 7.9 g/dL (6.2-8.1)
[2019-12-08 08:38] LABS: TOTAL BILIRUBIN 0.5 mg/dL (0.2-1.2)
[2019-12-08 08:49] LABS: PROTHROMBIN TIME 9.6 SECONDS (9.0-12.0)
== END ==
LOC: RAD 07:53 → AMSURD 07:53 → RAD 09:00
PROVIDERS: Urology
DX: Z01.818 Encounter for other preprocedural examination (principal); I25.10 Atherosclerotic heart disease of native coronary artery without angina pectoris; Z85.520 Personal history of malignant carcinoid tumor of kidney; Z90.5 Acquired absence of kidney

== ENCOUNTER → 2019-12-13 | Outpatient (CLI) | payer MEDICARE, BC ==
[2019-11-28 20:56] VITALS: BP 113/73
[2019-12-13 09:41] LABS: URINE APPEARANCE CLEAR; URINE BILIRUBIN NEGATIVE (NEGATIVE); URINE BLOOD NEGATIVE (NEGATIVE); URINE COLOR YELLOW; URINE GLUCOSE NEGATIVE (NEGATIVE); URINE KETONE NEGATIVE (NEGATIVE); URINE LEUKOCYTE ESTERASE NEGATIVE (NEGATIVE); URINE NITRATE NEGATIVE (NEGATIVE); URINE PROTEIN(semi-quant) 1+ mg/dL (NEGATIVE); URINE UROBILINOGEN NORMAL (NORMAL); URINE WBC 0-1 /hpf (0-3)
[2019-12-13 09:42] LABS: URINE MUCUS PRESENT (NOT PRESENT)
== END ==
LOC: LAB 09:17 → RAD 09:17
PROVIDERS: Family Medicine
DX: R10.9 Unspecified abdominal pain (principal); R30.0 Dysuria

== ENCOUNTER → 2020-01-17 | Outpatient (CLI) | payer MEDICARE, BC ==
[2020-01-17 08:03] LABS: POTASSIUM 4.5 mmol/L (3.5-5.1)
[2020-01-17 08:04] LABS: CALCIUM 9.1 mg/dL (8.3-10.5)
== END ==
LOC: LAB 07:29
PROVIDERS: Family Medicine
DX: I70.0 Atherosclerosis of aorta (principal); I25.10 Atherosclerotic heart disease of native coronary artery without angina pectoris; I73.9 Peripheral vascular disease, unspecified; R79.89 Other specified abnormal findings of blood chemistry

== ENCOUNTER 2020-03-08 09:30 | Outpatient (RCR) | payer MEDICARE, BC | END 2020-03-08 10:00 | disposition still patient (30) | LOC: PT 09:30 | DX: Z47.1 Aftercare following joint replacement surgery (principal); Z96.641 Presence of right artificial hip joint ==

== ENCOUNTER → 2020-03-27 | Outpatient (CLI) | payer MEDICARE, BC | LOC: LAB 10:00 | DX: I25.10 Atherosclerotic heart disease of native coronary artery without angina pectoris (principal); I73.9 Peripheral vascular disease, unspecified ==

== ENCOUNTER → 2020-04-23 | Outpatient (CLI) | payer MEDICARE, BC ==
[2020-04-23 09:05] LABS: POTASSIUM 4.3 mmol/L (3.5-5.1)
[2020-04-23 09:06] LABS: CALCIUM 9.6 mg/dL (8.3-10.5)
== END ==
LOC: LAB 08:43
PROVIDERS: Internal Medicine Nephrology
DX: I12.9 Hypertensive chronic kidney disease with stage 1 through stage 4 chronic kidney disease, or unspecified chronic kidney disease (principal); N18.30 Chronic kidney disease, stage 3 unspecified; I77.9 Disorder of arteries and arterioles, unspecified

== ENCOUNTER → 2020-12-18 | Outpatient (CLI) | payer MEDICARE, BC ==
[2020-12-18 08:49] LABS: POTASSIUM 4.7 mmol/L (3.5-5.1)
[2020-12-18 08:51] LABS: CALCIUM 9.6 mg/dL (8.3-10.5)
[2020-12-18 09:05] LABS: URINE APPEARANCE CLEAR; URINE BILIRUBIN NEGATIVE (NEGATIVE); URINE BLOOD NEGATIVE (NEGATIVE); URINE COLOR YELLOW; URINE GLUCOSE NEGATIVE (NEGATIVE); URINE KETONE NEGATIVE (NEGATIVE); URINE LEUKOCYTE ESTERASE NEGATIVE (NEGATIVE); URINE NITRATE NEGATIVE (NEGATIVE); URINE PROTEIN(semi-quant) TRACE mg/dL (NEGATIVE); URINE UROBILINOGEN NORMAL (NORMAL)
== END ==
LOC: LAB 08:27
PROVIDERS: Internal Medicine Nephrology
DX: I12.9 Hypertensive chronic kidney disease with stage 1 through stage 4 chronic kidney disease, or unspecified chronic kidney disease (principal); N18.30 Chronic kidney disease, stage 3 unspecified; R35.1 Nocturia

== ENCOUNTER → 2020-12-24 | Outpatient (CLI) | payer MEDICARE, BC | LOC: LAB 08:01 | PROVIDERS: Internal Medicine Nephrology | DX: I12.9 Hypertensive chronic kidney disease with stage 1 through stage 4 chronic kidney disease, or unspecified chronic kidney disease (principal); N18.30 Chronic kidney disease, stage 3 unspecified ==

== ENCOUNTER → 2021-03-27 | Outpatient (CLI) | payer MEDICARE, BC ==
[2021-03-27 08:22] LABS: HEMATOCRIT 43.5 % (42.0-52.0); HEMOGLOBIN 14.4 g/dL (13.5-18.0); MEAN PLATELET VOLUME 9.5 fl (7.4-10.4); RED BLOOD COUNT 4.42 M/mm3 (4.20-5.60); RED CELL DISTRIBUTION WIDTH 12.7 % (11.5-14.5); WHITE BLOOD COUNT 4.5 K/mm3 (4.8-10.8)
[2021-03-27 08:29] LABS: POTASSIUM 4.6 mmol/L (3.5-5.1)
[2021-03-27 08:31] LABS: CALCIUM 9.8 mg/dL (8.3-10.5)
[2021-03-27 08:32] LABS: TOTAL PROTEIN 7.3 g/dL (6.2-8.1)
[2021-03-27 08:34] LABS: TOTAL BILIRUBIN 0.8 mg/dL (0.2-1.2)
== END ==
LOC: LAB 07:58
PROVIDERS: Family Medicine
DX: I70.90 Unspecified atherosclerosis (principal); N18.4 Chronic kidney disease, stage 4 (severe)

== ENCOUNTER 2021-06-21 17:20 | Emergency (ER) | payer MEDICARE, BC ==
[~2021-06-21] VITALS: Ht 175.3 cm; Wt 90.0 kg
[2021-06-21] MEDS ORDERED: OXYGEN ×2 (17:33→17:34)
[2021-06-21] MEDS ORDERED: ATORVASTATIN CA10 MG PO (17:34)
[2021-06-21 18:43] LABS: BASO # 0.05 K/mm3 (0.02-0.10); EOS # 0.05 K/mm3 (0.04-0.40); EOS % 0.8 % (0.0-4.0); HEMATOCRIT 40.4 % (42.0-52.0); HEMOGLOBIN 14.1 g/dL (13.5-18.0); LYMPH# 0.99 K/mm3 (1.50-4.00); MEAN CELL VOLUME 96 fl (78-100); MEAN CORPUSCULAR HEMOGLOBIN 33 pg (27-31); MEAN CORPUSCULAR HGB CONC 35 g/dL (33-37); MEAN PLATELET VOLUME 9.6 fl (7.4-10.4); MONO # 0.65 K/mm3 (0.20-0.80); NEU # 4.87 K/mm3 (1.40-6.50); PLATELET COUNT 146 K/mm3 (130-400); RED BLOOD COUNT 4.22 M/mm3 (4.20-5.60); RED CELL DISTRIBUTION WIDTH 12.5 % (11.5-14.5); WHITE BLOOD COUNT 6.6 K/mm3 (4.8-10.8)
[2021-06-21 18:53] LABS: ALBUMIN 4.3 g/dL (3.4-4.8)
[2021-06-21 18:54] LABS: POTASSIUM 4.2 mmol/L (3.5-5.1)
[2021-06-21 18:55] LABS: CALCIUM 9.7 mg/dL (8.3-10.5)
[2021-06-21 18:56] LABS: TOTAL PROTEIN 7.5 g/dL (6.2-8.1)
[2021-06-21 18:58] LABS: TOTAL BILIRUBIN 0.9 mg/dL (0.2-1.2)
[2021-06-21 19:42] VITALS: BP 197/105
== END 2021-06-21 20:04 | disposition home or self-care (01) ==
LOC: ED 17:20
PROVIDERS: Family Medicine
DX: F41.9 Anxiety disorder, unspecified (principal); I10 Essential (primary) hypertension; E78.5 Hyperlipidemia, unspecified; J44.9 Chronic obstructive pulmonary disease, unspecified; Z95.0 Presence of cardiac pacemaker; Z95.5 Presence of coronary angioplasty implant and graft; Z79.899 Other long term (current) drug therapy

== ENCOUNTER → 2021-10-31 | Outpatient (CLI) | payer MEDICARE, BC ==
[~2021-10-31] MED LIST changes: +OXYGEN
== END ==
LOC: RAD 09:06
DX: K59.00 Constipation, unspecified (principal)

== ENCOUNTER → 2021-11-04 | Outpatient (CLI) | payer MEDICARE, BC | LOC: RAD 08:00 | DX: K76.89 Other specified diseases of liver (principal) ==

== ENCOUNTER → 2021-11-10 | Outpatient (CLI) | payer MEDICARE, BC ==
[2021-11-10 08:30] LABS: POTASSIUM 4.5 mmol/L (3.5-5.1)
[2021-11-10 08:31] LABS: ALBUMIN 4.2 g/dL (3.4-4.8)
[2021-11-10 08:32] LABS: CALCIUM 9.9 mg/dL (8.3-10.5)
[2021-11-10 08:33] LABS: TOTAL PROTEIN 7.4 g/dL (6.2-8.1)
[2021-11-10 08:35] LABS: TOTAL BILIRUBIN 0.7 mg/dL (0.2-1.2)
== END ==
LOC: LAB 08:02
PROVIDERS: Family Medicine
DX: K76.89 Other specified diseases of liver (principal); I70.91 Generalized atherosclerosis; K59.00 Constipation, unspecified; N18.4 Chronic kidney disease, stage 4 (severe)

== ENCOUNTER → 2021-12-18 | Outpatient (CLI) | payer MEDICARE, BC ==
[2021-12-18 08:33] LABS: POTASSIUM 4.6 mmol/L (3.5-5.1)
[2021-12-18 08:35] LABS: CALCIUM 9.6 mg/dL (8.3-10.5)
== END ==
LOC: LAB 08:04
PROVIDERS: Internal Medicine Nephrology
DX: I12.9 Hypertensive chronic kidney disease with stage 1 through stage 4 chronic kidney disease, or unspecified chronic kidney disease (principal); N18.31 Chronic kidney disease, stage 3a

== ENCOUNTER → 2021-12-25 | Outpatient (CLI) | payer MEDICARE, BC | LOC: LAB 16:02 | DX: R06.02 Shortness of breath (principal) ==

== ENCOUNTER → 2022-01-23 | Outpatient (CLI) | payer MEDICARE, BC | LOC: LAB 12:41 | DX: Z20.822 Contact with and (suspected) exposure to COVID-19 (principal) ==

== ENCOUNTER → 2022-01-23 | Outpatient (CLI) | payer MEDICARE, BC ==
[2022-01-23 11:41] LABS: POTASSIUM 4.4 mmol/L (3.5-5.1)
[2022-01-23 11:43] LABS: CALCIUM 9.2 mg/dL (8.3-10.5)
== END ==
LOC: LAB 08:39 → RAD 08:39
PROVIDERS: Urology
DX: Z85.520 Personal history of malignant carcinoid tumor of kidney (principal); Z90.5 Acquired absence of kidney

== ENCOUNTER 2022-02-18 11:36 | Emergency (ER) | payer MEDICARE, BC ==
[2022-02-18] MEDS ORDERED: PAXLOVID 150-11 EACH PO (12:24)
[2022-02-18 12:56] VITALS: BP 145/85
== END 2022-02-18 12:55 | disposition home or self-care (01) ==
LOC: ED 11:36
DX: U07.1 COVID-19 (principal); F17.210 Nicotine dependence, cigarettes, uncomplicated

== ENCOUNTER → 2022-03-27 | Outpatient (CLI) | payer MEDICARE, BC ==
[~2022-03-27] MED LIST changes: +PAXLOVID 150-11 EACH PO
[2022-03-27 09:23] LABS: ALBUMIN 4.1 g/dL (3.4-4.8); POTASSIUM 4.6 mmol/L (3.5-5.1)
[2022-03-27 09:24] LABS: CALCIUM 9.3 mg/dL (8.3-10.5)
[2022-03-27 09:25] LABS: TOTAL PROTEIN 7.3 g/dL (6.2-8.1)
[2022-03-27 09:27] LABS: TOTAL BILIRUBIN 0.6 mg/dL (0.2-1.2)
== END ==
LOC: LAB 08:52
PROVIDERS: Internal Medicine Interventional Cardiology
DX: I70.91 Generalized atherosclerosis (principal); N18.4 Chronic kidney disease, stage 4 (severe); K59.00 Constipation, unspecified; K76.89 Other specified diseases of liver

== ENCOUNTER → 2022-03-30 | Outpatient (CLI) | payer MEDICARE, BC ==
[2022-03-30 21:40] LABS: CORTISOL, AM (0800) 14 ug/dL (3-20)
[2022-04-02 17:31] LABS: ALDOSTERONE, SERUM <4.0 ng/dL (<=21)
[2022-04-03 12:36] LABS: RENIN,PLASMA 0.6 ng/mL/h (())
== END ==
LOC: LAB 08:15
PROVIDERS: Internal Medicine Interventional Cardiology
DX: I71.4 Abdominal aortic aneurysm, without rupture (principal)

== ENCOUNTER → 2022-05-07 | Outpatient (CLI) | payer MEDICARE, BC | LOC: LAB 08:49 | DX: M85.80 Other specified disorders of bone density and structure, unspecified site (principal) ==

== ENCOUNTER 2022-06-23 17:43 | Emergency (ER) | payer MEDICARE, BC ==
[~2022-06-23] VITALS: Ht 175.3 cm; Wt 90.0 kg
[2022-06-23] MEDS ORDERED: CLONIDINE HYDR0.1 MG PO (18:28)
[2022-06-23] MEDS ORDERED: ELIQUIS5 MG PO (18:29)
[2022-06-23] MEDS ORDERED: SOTALOL HYDROCH80 MG PO (18:29)
[2022-06-23] MEDS ORDERED: ISOSORBIDE30 MG PO (18:29)
[2022-06-23] MEDS ORDERED: NITROGLYCERIN0.4 M1 SL (18:31)
[2022-06-23 19:27] VITALS: BP 130/76
== END 2022-06-23 19:28 | disposition home or self-care (01) ==
LOC: ED 17:43
DX: I10 Essential (primary) hypertension (principal)

== ENCOUNTER → 2023-04-27 | Outpatient (CLI) | payer MEDICARE, BC ==
[~2023-04-27] MED LIST changes: +CLONIDINE HYDR0.1 MG PO; +NITROGLYCERIN0.4 M1 SL; +SOTALOL HYDROCH80 MG PO
[2023-04-27 08:37] LABS: POTASSIUM 4.1 mmol/L (3.5-5.1)
[2023-04-27 08:38] LABS: CALCIUM 9.9 mg/dL (8.3-10.5)
== END ==
LOC: LAB 08:11
PROVIDERS: Family Medicine
DX: I70.91 Generalized atherosclerosis (principal); N18.4 Chronic kidney disease, stage 4 (severe); E78.00 Pure hypercholesterolemia, unspecified

== ENCOUNTER → 2023-11-11 | Outpatient (CLI) | payer MEDICARE, BC ==
[~2023-11-11] MED LIST changes: +NASONEX 24HR AL17 ML NS
[2023-11-11 08:51] LABS: CALCIUM 10.1 mg/dL (8.3-10.5)
== END ==
LOC: LAB 08:35
PROVIDERS: Family Medicine
DX: N18.31 Chronic kidney disease, stage 3a (principal)

== ENCOUNTER → 2023-12-16 | Outpatient (CLI) | payer MEDICARE, BC ==
[2024-02-03 15:17] LABS: CREATININE OTHER SOURCE AMS
[2024-02-03 15:30] LABS: ALBUMIN 4.3 g/dL (3.4-4.8); CALCIUM 9.7 mg/dL (8.3-10.5)
== END ==
LOC: LAB 13:31
PROVIDERS: Internal Medicine Nephrology
DX: I12.9 Hypertensive chronic kidney disease with stage 1 through stage 4 chronic kidney disease, or unspecified chronic kidney disease (principal); N18.31 Chronic kidney disease, stage 3a

== ENCOUNTER → 2024-10-30 | Outpatient (CLI) | payer MEDICARE, BC ==
[~2024-10-30] MED LIST changes: +MEDROL DOSEPAK4 MG PO; +ZITHROMAX 250M250 MG PO
== END ==
LOC: RAD 17:07
DX: J44.9 Chronic obstructive pulmonary disease, unspecified (principal)